=== PATIENT | male | born 1950 | race Hispanic/Latino ===

== ENCOUNTER 2023-01-16 11:40 | Emergency (ER) | payer MEDICARE ==
[~2023-01-16] VITALS: Ht 182.9 cm; Wt 80.3 kg
[2023-01-16 11:41] VITALS: BP 156/86; PULSE 86; RESP 16
[2023-01-16 12:24] LABS: SARS-CoV-2, RNA, NAAT NEGATIVE SARS CoV-2 (NEGATIVE)
[2023-01-16 12:27] LABS: INFLUENZA TYPE A Negative For Type A (NEGATIVE); INFLUENZA TYPE B Negative For Type B (NEGATIVE)
[2023-01-16] MEDS ORDERED: GUAI600T50 PO (14:09)
[2023-01-16] MEDS ORDERED: DOXY100T2 PO (14:09)
[2023-01-16] MEDS ORDERED: BENZ-39 PO (14:09)
== END 2023-01-16 14:27 | disposition home or self-care (01) ==
LOC: EDH 11:40
DX: J06.9 Acute upper respiratory infection, unspecified (principal); J40 Bronchitis, not specified as acute or chronic; Z20.822 Contact with and (suspected) exposure to COVID-19; Z79.899 Other long term (current) drug therapy; Z88.8 Allergy status to other drugs, medicaments and biological substances
CPT/HCPCS: 99284; 87804 ×2; 87635; 71045; C9803